=== PATIENT | female | born 2000 | race African-American/Black ===

== ENCOUNTER 2021-04-17 11:43 | Emergency (ER) | payer MEDICAID ==
[~2021-04-17] VITALS: Ht 172.7 cm; Wt 81.0 kg
[2021-04-17 11:44] VITALS: BP 113/83
[2021-04-17] MEDS ORDERED: CARB15DR63 LEFT EAR (12:41)
== END 2021-04-17 13:15 | disposition home or self-care (01) ==
LOC: ER 11:43
DX: H61.22 Impacted cerumen, left ear (principal)
CPT/HCPCS: 69210; 99282

== ENCOUNTER 2021-07-24 16:57 | Emergency (ER) | payer MEDICAID, OTHER ==
[~2021-07-24] VITALS: Ht 170.2 cm; Wt 83.0 kg
[~2021-07-24 16:57] MED LIST: CARB15DR63 LEFT EAR
[2021-07-24] MEDS ORDERED: CEFTRIAXONE SODIUM 500 MG/VIAL IM ONE (17:45)
[2021-07-24 17:54] VITALS: BP 122/88
[2021-07-24] MEDS ORDERED: DOXY100C5 MT ×2 (18:14→18:16)
[2021-07-24 19:23] LABS: CLARITY URINE CLOUDY (CLEAR); COLOR URINE YELLOW (YELLOW); KETONES URINE TRACE (NEGATIVE); LEUKOCYTE ESTERASE URINE 1+ (NEGATIVE); NITRITE URINE NEGATIVE (NEGATIVE); OCCULT BLOOD URINE NEGATIVE (NEGATIVE); PH URINE 8.5 (4.5-8.0); PROTEIN URINE NEGATIVE (NEGATIVE)
[2021-07-28 04:07] LABS: NEISSERIA GONORRHOEAE NAA Negative (Negative)
== END 2021-07-24 19:02 | disposition home or self-care (01) ==
LOC: ER 16:57
DX: A74.9 Chlamydial infection, unspecified (principal)
CPT/HCPCS: 81003; 87491; 87591; 96372; 99283; J0696

== ENCOUNTER 2022-01-10 00:51 | Emergency (ER) | payer MEDICAID ==
[~2022-01-10 00:51] MED LIST changes: +DOXY100C5 MT
== END 2022-01-10 02:40 | disposition left against medical advice (07) ==
LOC: ER 00:51
DX: Z53.21 Procedure and treatment not carried out due to patient leaving prior to being seen by health care provider (principal)